=== PATIENT | male | born 1955 | race Caucasian/White ===

== ENCOUNTER → 2019-02-25 | Outpatient (CLI) | payer BC ==
[2019-02-25 15:42] LABS: Basophils # (A) 0.1 k/uL (0-0.2); Basophils % (A) 1 %; Eosinophils # (A) 0.2 k/uL (0-0.7); Eosinophils % (A) 3 %; HGB 15.9 gm/dL (13.0-17.5); Lymphocytes # (A) 2.6 k/uL (1.0-4.8); Lymphocytes % (A) 31 %; MCH 29.4 pg (25.0-35.0); MCHC 33.9 g/dL (31.0-37.0); MCV 86.9 fL (80.0-100.0); Mean Platelet Volume 7.2; Monocytes # (A) 0.6 k/uL (0-1.0); Monocytes % (A) 7 %; Neutrophils # (A) 4.7 k/uL (1.3-7.7); Neutrophils % (A) 56 %; Platelet Count 206 k/uL (150-450); RDW 12.8 % (11.5-15.5); WBC 8.4 k/uL (3.8-10.6)
[2019-02-25 23:07] LABS: Vitamin D 25 Hydroxy 34.6 ng/mL (30.0-100.0)
[2019-02-25 23:08] LABS: Albumin 4.1 g/dL (3.80-4.90); Albumin/Globulin Ratio 2.28 (1.60-3.17); Calcium 8.9 mg/dL (8.7-10.3); Globulin 1.8 g/dL (1.6-3.3); Potassium 4.5 mmol/L (3.5-5.5); Total Bilirubin 0.5 mg/dL (0.2-1.2); Total Protein 5.9 g/dL (6.2-8.2)
== END ==
LOC: LABWHC1 14:29
PROVIDERS: ATTEND Radiology Radiation Oncology
DX: C61 Malignant neoplasm of prostate (principal); D63.0 Anemia in neoplastic disease; E03.2 Hypothyroidism due to medicaments and other exogenous substances; E55.9 Vitamin D deficiency, unspecified; R53.82 Chronic fatigue, unspecified
CPT/HCPCS: 36415; 80053; 82306; 82607; 84153; 84403; 85025